=== PATIENT | male | born 1965 | race Caucasian/White ===

== ENCOUNTER 2017-03-01 08:00 | Emergency (ER) | payer OTHER ==
[~2017-03-01] VITALS: Ht 193 cm; Wt 124.7 kg
[2017-03-01 08:05] VITALS: BP 145/96
[2017-03-01] MEDS ORDERED: EFFEXOR XR75 M1 PO (08:26)
[2017-03-01] MEDS ORDERED: WELLBUTRIN XL300 M2 PO (08:27)
[2017-03-01] MEDS ORDERED: LEVOTHYROXINE125 MCG PO (08:27)
--- NOTE | 2017-03-01 08:51 | RADIOLOGY REPORT ---
EXAMINATION: XR CHEST 2 VIEWS CLINICAL INFORMATION: Productive cough of 2 weeks' duration; question pneumonia. COMPARISON: None. TECHNIQUE: Frontal and lateral views of the chest were obtained. FINDINGS: The heart, great vessels, pulmonary vasculature and mediastinum are normal. The lungs show no focal infiltrate, effusion or pneumothorax. There is no acute osseous abnormality. IMPRESSION: No active cardiopulmonary disease.
--- NOTE | 2017-03-01 08:54 | ED INFLUENZA/URI COMPLAINT ---
History of Present Illness General Chief Complaint: Upper Respiratory Sx/Fever Stated Complaint: COUGH AND CONGESTION Source: patient Exam Limitations: no limitations Vital Signs & Intake/Output Vital Signs & Intake/Output Vital Signs Date Time Temp Pulse Resp B/P B/P Pulse O2 O2 Flow FiO2 Mean Ox Delivery Rate 03/01 0805 95.9 73 18 145/96 97 Room Air Allergies Coded Allergies: No Known Allergies (03/01/17) Reconcile Medications Bupropion HCl (Wellbutrin XL) 300 MG TAB.ER.24H 1 TAB PO DAILY MENTAL HEALTH (Reported) Levothyroxine Sodium 125 MCG TABLET 1 TAB PO DAILY AC THYROID (Reported) Venlafaxine HCl (Effexor XR) 75 MG CAP.ER.24H 3 CAP PO DAILY MENTAL HEALTH ( Reported) Triage Note: PT TO ER C/C 2 WEEK HX OF PRODUCTIVE COUGH WITH YELLOW SPUTUM. DENIES FEVERS. WAS SEEN AT [facility] FOR SAME, DX WITH BRONCHITIS, FINISHED COURSE OF ABX. SYMPTOMS PERSIST. DENIES C/P OR SOB. Triage Nurses Notes Reviewed? yes Onset: Gradual Duration: week(s): HPI: Mr Cat is a 51-year-old gentleman with a PMH of hypothyroidism, depression, low testosterone, previous surgical history of bilateral knee arthroscopy, fusion of the right lower extremity, vasectomy who presents with complaints of productive cough, generalized lethargy and shortness of breath with exertion. He was diagnosed with bronchitis/sinusitis in December, completed a course of Augmentin with reported improvement in his symptoms. During the hol he had been visiting his mother at [facility] (likely sick contacts) were unfortunately around that time. He endorses persistent productive cough with occasional yellow sputum, sinus congestion, occasional exertional shortness of breath and generalized lethargic during this time for which she was started on a course of Z-Joe on 02/23/2017. He denies any fevers, chills, chest pain, palpitations, nausea, vomiting but does endorse one episode of diarrhea yesterday. (Ana Rosa VALLES,Bradshaw) Past History Travel History Traveled to [place] past 21 day No Medical History Any Pertinent Medical History? see below for history Psychiatric: depression Endocrine: hypothyroidism Surgical History Surgical History: vasectomy, knee arthroscopy Psychosocial History What is your primary language Setswana Tobacco Use: Never used Family History Hx Contributory? No (Cain Oseguera MD) Review of Systems Review of Systems Constitutional: Reports: see HPI. EENTM: Reports: see HPI. Respiratory: Reports: see HPI. Cardiovascular: Reports: no symptoms. GI: Reports: see HPI. Genitourinary: Reports: no symptoms. Musculoskeletal: Reports: no symptoms. Skin: Reports: no symptoms. (Cain Oseguera MD) Physical Exam Physical Exam General Appearance: no apparent distress, alert, comfortable Head: atraumatic, normal appearance Eyes: Bilateral: PERRL, EOMI. Ears, Nose, Throat: mucous membranes slightly erythematous, dry appearing Respiratory: normal breath sounds, no respiratory distress, lungs clear Cardiovascular: regular rate/rhythm, normal peripheral pulses Gastrointestinal: normal bowel sounds, soft, non-tender Extremities: no edema Core Measures Sepsis Present: No Sepsis Focused Exam Completed? No (Cain Oseguera MD) Progress Differential Diagnosis: sinusitis, viral/bacterial bronchitis Plan of Care: Orders Procedure Date/time Status RAPID VIRAL INFLUENZA A 03/01 847 Active MONOSPOT TEST 03/01 831 Active Microbiology 03/01 847 NASOPHARYN: Influenza Virus A & B Rapid Smear - ORD Diagnostic Imaging: Viewed by Me: Radiology Read. Radiology Impression: no acute abnormality Initial ED EKG: none (Cain Oseguera MD) Departure Departure Time of Disposition: 900 Disposition: HOME OR SELF CARE Condition: Stable Clinical Impression Primary Impression: Viral bronchitis Referrals: Fausto VALLES,Mark Ford (PCP/Family) Additional Instructions: You were seen in the emergency room today for viral/bacterial bronchitis and had recently completed a course of antibiotics. Continue with rest and regular hydration. Please follow-up with your PCP after discharge to go over the results from today 's visit. There may be nonspecific findings from ER visit that may require further workup and monitoring by your PCP. If you had a laceration associated with this visit there is a chance that a foreign body may have been retained. Please follow-up with your physician in 3- 5 days for a wound check. If you had an x-ray done there is a chance that a fracture could have been missed on the initial reading and you should follow-up with your PCP for repeat imaging if symptoms persist/worsen. In the event that your blood pressure was elevated in the emergency room, please have it rechecked by your PCP within the next 48 hours. If narcotics/controlled substance was prescribed for you in the ED, avoid driving/operating heavy machinery while on these medications. These medications can cause constipation for which you may require stool softeners. Thank you for choosing [facility] emergency room. Please return to the emergency room immediately if you have any concerns of worsening symptoms. Departure Forms: Customer Survey General Discharge Information (Ana Rosa VALLES,Cain) Resident Co-Sign Statement Statement: ED Attending supervision documentation- [X] I saw and evaluated the patient. I have also reviewed all the pertinent lab results and diagnostic results. I agree with the findings and the plan of care as documented in the Resident's documentation. [X] I have reviewed the ED Record and agree with the Resident's documentation. [] Additions or exceptions (if any) to the Resident's note and plan are summarized below: [] (Kennedi VALLES,Marylu)
== END 2017-03-01 09:01 ==
LOC: ERH 08:00
DX: J40 Bronchitis, not specified as acute or chronic (principal)
CPT/HCPCS: 71046; 87804; 87804-59